=== PATIENT | male | born 2000 | race Caucasian/White ===

== ENCOUNTER 2022-06-11 14:14 | Emergency (ER) | payer MEDICAID ==
[2022-06-11 15:42] LABS: CORONAVIRUS COVID-19 NAA POSITIVE (NEGATIVE)
== END 2022-06-11 15:55 | disposition home or self-care (01) ==
LOC: LB.ED 14:14
DX: U07.1 COVID-19 (principal); F17.210 Nicotine dependence, cigarettes, uncomplicated
CPT/HCPCS: 0240U; 99284